=== PATIENT | female | born 1955 | race Two or more races ===

== ENCOUNTER 2016-07-28 05:32 | Emergency (ER) | payer MEDICAID ==
--- NOTE | 2016-07-28 07:00 | EDPHY ---
HPI/HX/ROS/PE/MDM Narrative: CHIEF COMPLAINT: Shoulder pain HPI: The patient is a 61 year old female who complains of shoulder pain after due to a mechanical fall. The patient states she tripped and landed on her right shoulder around 2am. Her pain is moderate to severe. She denies other injuries. No head trauma. No loss of consciousness. REVIEW OF SYSTEMS: Gen: No fever, no chills. PMH: Denies. SOCIAL HISTORY: Single. Lives in [place]. PHYSICAL EXAM: General: Patient is alert, in no acute distress. Head: Atraumatic. Neck: Nontender to palpation. FROM. Chest: No TTP. Normal breath sounds bilaterally. Abd: Soft, NTTP. Back: NTTP, no signs of trauma. Skin: No rash or laceration. Extremities: Tenderness to proximal humerus. Clavicle is nontender. Light touch sensation and motor function is preserved in the axillary, median, radial and ulnar nerve distributions. There is a 2+ radial pulse with brisk cap refill. Neuro: Oriented x3. Normal motor function. Normal sensory function. ED Course: Imaging: Study: X-ray of the shoulder was obtained. Images were interpreted by the radiologist, Dr. Cochran. Results: Nondisplaced fracture greater tuberosity right proximal humerus. I viewed the images myself on the PACS system. 0800: I discussed findings with the patient. Plan to discharge home with orthopedic followup. 0830: Patient continues to complain of pain. I ordered an elbow x-ray. Patient tells the nurse she is unable to afford Ibuprofen. Study: X-ray of the elbow was obtained. Results: Normal. Images were interpreted by the radiologist, Dr. Quintero. I viewed the images myself on the PACS system. 1015: I wrote for an Ibuprofen prescription that case management can get filled for her. MDM: This patient presents with right shoulder pain and is found to have a proximal humerus fracture. She was placed in a sling. I see no signs of other trauma or neurovascular injury. She is comfortable, hemodynamically stable and ambulatory without assistance. I see no indication for admission or emergent surgery. Patient will be provided with rx for pain medication and given orthopedic referral. General Time Seen by Provider: 07/28/16 06:34 Initial Vital Signs: Initial Vital Signs Temperature (C) 36.6 C 07/28/16 05:36 Heart Rate 67 07/28/16 05:36 Respiratory Rate 18 07/28/16 05:36 Blood Pressure 145/94 H 07/28/16 05:36 O2 Sat (%) 93 07/28/16 05:36 O2 Delivery Mode Room Air Allergies/Adverse Reactions: No Known Allergies Allergy (Verified 07/28/16 10:52) Home Medications: Medication Instructions Recorded Ibuprofen [Motrin (*)] 600 mg PO Q8H #30 tab 07/28/16 oxyCODONE/APAP 5/325 [Percocet 1 - 2 tab PO Q4H PRN #20 tab 07/28/16 5/325 (*)] Departure - Departure Disposition: Home, Routine, Self-Care Clinical Impression: Proximal humerus fracture Condition: Good Instructions: Proximal Humerus Fracture (ED) Additional Instructions: You have been referred to the an orthopedic surgeon. Please call today to schedule a followup appointment. Rest, ice, elevation. Follow up with an orthopedic surgeon within one week. Return to the emergency department for worsening pain, swelling, numbness, weakness or other concerns. Wear sling at all times until reevaluation. Referrals: Urbano Chung MD [Medical Doctor] - As per Instructions Prescriptions: Ibuprofen [Motrin (*)] 600 mg PO Q8H #30 tab oxyCODONE/APAP 5/325 [Percocet 5/325 (*)] 1 - 2 tab PO Q4H PRN #20 tab PRN Reason: Pain, Severe Report Scribed for: Saul Barclay Report Scribed by: Teresa Lopez Date of Report: 07/28/16 Time of Report: 07:00
[2016-07-28 10:55] VITALS: BP 138/90; PULSE 68; RESP 16; TEMP 97.7; O2SAT 96
== END 2016-07-28 10:25 | disposition home or self-care (01) ==
DX: S42.201A Unspecified fracture of upper end of right humerus, initial encounter for closed fracture (principal); W01.0XXA Fall on same level from slipping, tripping and stumbling without subsequent striking against object, initial encounter
CPT/HCPCS: A4565

== ENCOUNTER 2016-07-28 10:36 | Emergency (ER) | payer MEDICAID ==
[2016-07-28] MEDS ORDERED: IBUPROFEN 600 MG TAB PO ONE (10:57)
[2016-07-28] MEDS ORDERED: ACETAMINOPHEN 325 MG TAB PO ONE (11:59)
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
[2016-07-28 12:28] VITALS: BP 128/75; PULSE 65; RESP 18; TEMP 98.6; O2SAT 95
== END 2016-07-28 12:28 | disposition home or self-care (01) ==
DX: S42.201D Unspecified fracture of upper end of right humerus, subsequent encounter for fracture with routine healing (principal); W01.0XXD Fall on same level from slipping, tripping and stumbling without subsequent striking against object, subsequent encounter
CPT/HCPCS: A4565

== ENCOUNTER 2018-01-16 00:14 | Observation (INO) | payer OTHER, MEDICAID ==
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
[2018-01-16] MEDS ORDERED: ACETAMINOPHEN 500 MG TAB PO ONE (01:10)
[2018-01-16] MEDS ORDERED: NS 1,000 ML IV ONE (04:19)
[2018-01-16] MEDS ORDERED: fentaNYL 100 MCG/2 ML INJ IVP ONE ×2 (04:19→05:40)
[2018-01-16 04:27] LABS: PLATELET COUNT 245 10^3/uL (150-400)
[2018-01-16] MEDS ORDERED: IOPAMIDOL (ISOVUE-300) 100 ML BTL ONE (04:29)
[2018-01-16] MEDS ORDERED: KETOROLAC 15 MG/1 ML SDV IVP ONE (06:29)
[2018-01-16] MEDS ORDERED: IOPAMIDOL (ISOVUE 370) 100 ML BTL IV ONE (06:32)
[2018-01-16] MEDS ORDERED: ONDANSETRON 4 MG/2 ML VIAL IVP PRN (07:54)
[2018-01-16] MEDS ORDERED: ACETAMINOPHEN 325 MG TAB PO PRN (07:54)
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
[2018-01-16] MEDS: DOCUSATE SODIUM 100 MG CAP PO SCH ×2 (13:10→20:25)
[2018-01-16] MEDS: KETOROLAC 15 MG/1 ML SDV IVP SCH ×2 (14:20→17:16)
[2018-01-16] MEDS: NS 1,000 ML IV SCH (18:31)
[2018-01-16] MEDS ORDERED: diphenhydrAMINE 25 MG CAP PO PRN (19:06)
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
[2018-01-16] MEDS: OXYCODONE/APAP 5/325 TAB PO PRN (20:24)
[2018-01-17] MEDS: KETOROLAC 15 MG/1 ML SDV IVP SCH ×2 (00:27→05:30)
[2018-01-17] MEDS: NS 1,000 ML IV SCH (05:31)
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
[2018-01-17] MEDS: DOCUSATE SODIUM 100 MG CAP PO SCH (11:03)
[2018-01-17] MEDS ORDERED: GADOBUTROL 10 ML VIAL IVP ONE (11:58)
[2018-01-17 12:54] VITALS: BP 130/89
[2018-01-17] MEDS: OXYCODONE/APAP 5/325 TAB PO PRN (15:31)
== END 2018-01-17 15:42 | disposition home or self-care (01) ==
LOC: EDUNIT# → F3N 08:26
PROVIDERS: ADMIT Orthopaedic Surgery; ATTEND Orthopaedic Surgery
DX: S42.018A Nondisplaced fracture of sternal end of left clavicle, initial encounter for closed fracture (principal); V43.62XA Car passenger injured in collision with other type car in traffic accident, initial encounter; Y92.413 State road as the place of occurrence of the external cause; Y99.8 Other external cause status; G89.11 Acute pain due to trauma; D49.6 Neoplasm of unspecified behavior of brain; N28.1 Cyst of kidney, acquired; N17.9 Acute kidney failure, unspecified
CPT/HCPCS: 70450; 70498; 70553; 71046; 71260; 72125; 73000; 73030; 74177; 76770; 97116; 97161; 97165; G0378; 82435-PO; 82565-PO; 82947-PO; 84132-PO; 84295-PO; 84520-PO; 85014-PO; 96374; A4565; A9585; J1885; J3010; Q9967

== ENCOUNTER → 2018-06-20 | Outpatient (CLI) | payer MEDICAID | LOC: FIMAGING 15:05 | PROVIDERS: ATTEND Orthopaedic Surgery | DX: S42.012A Anterior displaced fracture of sternal end of left clavicle, initial encounter for closed fracture (principal); X58.XXXA Exposure to other specified factors, initial encounter; Y92.9 Unspecified place or not applicable; Y93.9 Activity, unspecified ==